=== PATIENT | male | born 1990 | race Caucasian/White ===

== ENCOUNTER 2020-05-06 14:15 | Outpatient (REF) | payer OTHER, SELFPAY | END 2020-05-06 14:16 | disposition home or self-care (01) | LOC: HO.LAB 14:15 | PROVIDERS: Visit Provider Internal Medicine | DX: Z20.828 Contact with and (suspected) exposure to other viral communicable diseases (principal) | CPT/HCPCS: C9803; U0003 ==

== ENCOUNTER 2020-07-01 15:17 | Outpatient (REF) | payer OTHER, SELFPAY ==
[2020-07-01 15:46] LABS: Eosinophils Absolute Auto 0.4 X10*3/uL (0.0-0.4); Imm Gran Pct Auto 0.4 % (0.0-0.4); MANUAL DIFF FLAG SCAN; Red Cell Distribution Width 12.3 % (11.0-16.0); SCAN SMEAR FLAG 1
[2020-07-01 15:48] LABS: Basophils Absolute Auto 0.1 X10*3/uL (0.0-0.2); Basophils Percent Auto 0.5 % (0-2); Hemoglobin 16.6 g/dl (14.0-18.0); Imm Gran Abs Auto 0.05 X10*3/uL (0.00-0.03); Lymphocytes Absolute Auto 2.7 X10*3/uL (1.2-4.9); Lymphocytes Percent Auto 19.1 % (20-40); Mean Corpuscular HGB Conc 34.6 g/dl (31.0-36.0); Mean Corpuscular Hemoglobin 30.5 pg (27.0-33.0); Mean Corpuscular Volume 88.1 fL (80-98); Monocytes Absolute Auto 1.4 X10*3/uL (0.1-1.2); Monocytes Percent Auto 9.9 % (2-11); Neutrophils Absolute Auto 9.4 X10*3/uL (2.0-8.3); Neutrophils Percent Auto 67.1 % (45-73); PLT CLUMP 1; Red Blood Count 5.45 X10*6/uL (4.60-5.80)
[2020-07-01 16:04] LABS: PLT ABN DIST 1
[2020-07-01 16:05] LABS: Platelet Count 134 X10*3/uL (160-400)
[2020-07-01 16:06] LABS: SLIDE REVIEW VERIFIED
[2020-07-01 16:27] LABS: Alanine Aminotransferase 18 U/L (0-40); Albumin Level 4.9 g/dL (3.5-5.0); Alkaline Phosphatase 119 U/L (39-117); Amylase 43 U/L (28-100); Aspartate Amino Transferase 19 U/L (5-37); Bilirubin Direct 0.3 mg/dL (0.0-0.5); Bilirubin Total 0.7 mg/dL (0.0-1.0); Lipase 53 U/L (8-78); Total Protein 7.9 g/dL (6.5-8.0)
== END 2020-07-01 15:18 | disposition home or self-care (01) ==
LOC: HO.LAB 15:17
PROVIDERS: PCP Internal Medicine; Visit Provider Internal Medicine
DX: R10.13 Epigastric pain (principal); K92.1 Melena
CPT/HCPCS: 36415; 80076; 82150; 83690; 85025

== ENCOUNTER 2020-07-03 19:50 | Emergency (ER) | payer OTHER, SELFPAY ==
--- NOTE | 2020-07-03 | ECG_ITS ---
Test Reason : REPAT Blood Pressure : / mmHG Vent. Rate : 088 BPM Atrial Rate : 088 BPM P-R Int : 140 ms QRS Dur : 082 ms QT Int : 362 ms P-R-T Axes : 067 040 038 degrees QTc Int : 438 ms Normal sinus rhythm Normal ECG When compared with ECG of 03-JUL-2020 19:57, Non-specific change in ST segment in Inferior leads Nonspecific T wave abnormality no longer evident in Inferior leads Referred By: Radha Panchal Electronically Signed By:MARISELA MANZANARES MD
--- NOTE | ~2020-07-03 | CT_ITS ---
EXAMINATION: CTA CHEST, ABDOMEN AND PELVIS WITH CONTRAST CLINICAL INFORMATION: Reason for Exam r/o dissection COMPARISON: No pertinent prior studies are available for comparison. TECHNIQUE: Multidetector volumetric imaging was performed from the thoracic inlet through the pubic symphysis following administration of 85 mL of Omnipaque 350. Sagittal and coronal reformatted images were obtained on the technologist's workstation. Images were not evaluated on an independent dedicated 3-D workstation and 3-D imaging was not obtained. This CT examination was performed using dose optimization techniques as appropriate, variously including the following: *Automated exposure control *Adjustment of mA and/or kV according to patient size (this includes techniques or standardized protocols for targeted exams where dose is matched to indication/reason for exam; i.e. extremities or head) *Use of iterative reconstruction technique DLP: 1126 mGy-cm VASCULAR FINDINGS: The thoracic aorta appears normal without evidence of aneurysm or dissection. Three-vessel branching pattern of the aortic arch is present and the great vessels are all widely patent. A tricuspid aortic valve is seen. Although not carried out for evaluation of the pulmonary arteries or pulmonary veins, no gross abnormality is seen. The abdominal demonstrates minimal calcific plaque distally without aneurysm. Minimal calcific plaque is present in the common iliac arteries and external iliac arteries and common femoral arteries without stenosis, aneurysm or dissection. The celiac SMA and KAYCE are all widely patent. There are single renal arteries present bilaterally which are widely patent. NONVASCULAR FINDINGS: CHEST: Lung: The lungs are clear without focal opacity or nodule. Mediastinum: The mediastinum is normal. The central vascular structures are unremarkable. No hilar or mediastinal lymphadenopathy. Pericardium/Pleura: No significant effusion. No pleural mass or thickening. Chest Wall/Axilla: Gynecomastia is present. ABDOMEN/PELVIS: Peritoneal Space: No significant free air or free fluid identified. Liver, Gallbladder, Biliary Tree: The liver is normal in size and shape but demonstrates decreased attenuation suggesting hepatic steatosis. No focal hepatic lesion or biliary ductal dilatation is present. The gallbladder is surgically absent Pancreas: Unremarkable Spleen: Unremarkable. A splenule is present. Adrenal Glands: Unremarkable Kidneys and Ureters: The kidneys are normal in size, shape, and attenuation. No hydronephrosis, hydroureter, or calculi seen. No perinephric stranding. Bladder: Unremarkable Gastrointestinal Tract: Patient status post gastric surgery with probable sleeve. The small and large bowel are unremarkable. The appendix is unremarkable. Abdominal Wall: No significant hernia is appreciated. Lymph Nodes: No lymphadenopathy. PELVIC VISCERA: Unremarkable. The vas deferens are calcified. Prostate appears normal. OSSEUS STRUCTURES: Minimal degenerative changes are noted in the spine. No bony destructive lesions are seen. CT/CT angio abdomen pelvis IMPRESSION: 1. No aortic dissection is seen. 2. Atherosclerotic changes are present with some mild calcific plaque, a bit unusual for a 30-year-old. The vas deferens are also calcified. I suspect this patient may be a diabetic. 3. Other incidental findings as described above.
[2020-07-03 20:08] VITALS: BP 128/96; PULSE 117; RESP 18; TEMP 36.9; O2SAT 98; BMI 27.8
--- NOTE | 2020-07-03 20:29 | PC.NURSE ---
chargemaster analyst call, pt clutching chest, pale, diaphoretic, sob. vitals being retaken. pt nausea. request at have pt brought back now.
[2020-07-03 20:30] VITALS: BP 77/50; PULSE 74; RESP 14
--- NOTE | 2020-07-03 20:38 | ECG_ITS ---
Test Reason : CHEST/MILLICENT PAIN Blood Pressure : / mmHG Vent. Rate : 115 BPM Atrial Rate : 115 BPM P-R Int : 146 ms QRS Dur : 082 ms QT Int : 328 ms P-R-T Axes : 079 069 012 degrees QTc Int : 453 ms Sinus tachycardia Right atrial enlargement Nonspecific T wave abnormality Abnormal ECG No previous ECGs available Referred By: Felipa Buchanan Electronically Signed By:MARISELA MANZANARES MD
[2020-07-03 20:43] LABS: Glucose, Whole Blood 331 mg/dL (60-115)
[2020-07-03 20:47] LABS: Hematocrit 49.1 % (42-52); Imm Gran Abs Auto 0.03 X10*3/uL (0.00-0.03); Imm Gran Pct Auto 0.2 % (0.0-0.4); Monocytes Percent Auto 10.1 % (2-11); SCAN SMEAR FLAG 1; WBC ABN SCTR 1
[2020-07-03] MEDS: 0.9 % Sodium Chloride 1,000 ML 999 ML IVCONT ×2 (20:47→21:48)
[2020-07-03 20:49] LABS: Basophils Absolute Auto 0.1 X10*3/uL (0.0-0.2); Basophils Percent Auto 0.8 % (0-2); Eosinophils Absolute Auto 0.5 X10*3/uL (0.0-0.4); Hemoglobin 17.2 g/dl (14.0-18.0); Lymphocytes Absolute Auto 3.3 X10*3/uL (1.2-4.9); Lymphocytes Percent Auto 24.8 % (20-40); Mean Corpuscular Hemoglobin 30.2 pg (27.0-33.0); Mean Corpuscular Volume 86.1 fL (80-98); Monocytes Absolute Auto 1.3 X10*3/uL (0.1-1.2); Neutrophils Absolute Auto 7.9 X10*3/uL (2.0-8.3); Neutrophils Percent Auto 60.1 % (45-73); Platelet Count 143 X10*3/uL (160-400); Red Cell Distribution Width 12.1 % (11.0-16.0)
[2020-07-03 20:52] LABS: PLT ABN DIST 1; WBC ABN SCTR FOR CBC 1
[2020-07-03 20:53] LABS: MANUAL DIFF FLAG NO; White Blood Count 13.1 X10*3/uL (4.8-10.8)
[2020-07-03] MEDS: iohexoL 350 MG/ML 100 ML INFUS..BTL IV (21:11)
[2020-07-03 21:17] LABS: INTERNATIONAL NORM RATIO 1.1 (0.9-1.1); Prothrombin Time 12.7 SEC (10.8-13.0)
[2020-07-03 21:21] LABS: Lactic Acid 2.5 mmol/L (0.5-2.0)
[2020-07-03 21:22] LABS: Alanine Aminotransferase 20 U/L (0-40); Alkaline Phosphatase 111 U/L (39-117); Anion Gap 20 (12-20); Aspartate Amino Transferase 18 U/L (5-37); Bilirubin Direct 0.3 mg/dL (0.0-0.5); Bilirubin Total 0.7 mg/dL (0.0-1.0); Blood Urea Nitrogen 14 mg/dL (9-16); Calcium 10.2 mg/dL (8.4-10.2); Carbon Dioxide 22 mmol/L (22-29); Chloride 99 mmol/L (96-108); Creatinine Clr Calc Pharmacy 88.7; Estimated Glomerular Filt Rate 59; Glucose Random 351 mg/dL (60-115); Magnesium 2.2 mg/dL (1.6-2.6); Potassium 3.9 mmol/L (3.3-5.1); Sodium 137 mmol/L (135-145)
[2020-07-03 21:23] LABS: Lipase 49 U/L (8-78)
[2020-07-03 21:24] LABS: COVID-19 Test Negative (Negative); IDNOW Serial# 9DD0AD1C
[2020-07-03 21:27] LABS: Troponin-I High Sensitivity < 3.5 ng/L (<3.5-35.0)
--- NOTE | 2020-07-03 21:28 | ED_ITS ---
HPI - Chest Pain General Chief Complaint: Chest Pain Stated Complaint: Chest and back pain Time Seen by Provider: 07/03/20 20:40 Source: patient Mode of arrival: ambulatory History of Present Illness HPI narrative: 30-year-old male with a past medical history of hypertension, anxiety, hyperlipidemia, presenting to the ED complaining of chest pain radiating to back and right leg with associated SOB x1 week. Reports recently discharge from [facility] this week with similar symptoms, and scheduled for endoscopy and colonoscopy tomorrow with our GI doctor. Admits has been taking colonoscopy prep, with multiple episodes of diarrhea today. Denies fever, chills, vomiting. Per [facility] records patient was recently admitted for mild colitis and electrolyte abnormalities with significant vomiting, palpitations, and anxiety. Was noted to be hypokalemic and in mild benzo withdrawal after running out of his clonazepam and then seen again in their ED on 06/29. MD complaint: chest pain Related Data Home Medications Medication Instructions Recorded Confirmed clonazepam 1 tab PO BID 07/03/20 07/03/20 lisinopril 1 tab PO DAILY 07/03/20 07/03/20 omeprazole 1 cap PO DAILY 07/03/20 07/03/20 ondansetron 1 tab PO Q8H PRN 07/03/20 07/03/20 simvastatin 1 tab PO BEDTIME 07/03/20 07/03/20 tizanidine mg PO 07/03/20 07/03/20 Allergies Allergy/AdvReac Type Severity Reaction Status Date / Time No Known Allergies Allergy Unverified 02/07/20 17:32 [No Known Allergies*] Review of Systems Review of Systems: Constitutional: +Weight loss, No Fever, No Chills, No Night Sweats, + Fatigue, No Malaise Cardiovascular: + Chest Pain, + SOB, No Dyspnea on Exertion Respiratory: No Cough, No Sputum Gastrointestinal: No Nausea, No Vomiting, + Diarrhea, No Constipation, + Abdominal pain, No Hematochezia, No Melena Genitourinary: No irregular bleeding, No Dysuria, No Urinary Frequency, No Hematuria Musculoskeletal: No joint pain, No Myalgias, No Joint Swelling Skin: No Skin Lesions, No rash Neuro: +generalized Weakness, No Numbness, No Paresthesias Yes all other systems are reviewed and are negative PMFSH Past Medical History Attestation statement: The following information was validated with the patient. Medical History (Updated 07/03/20 @ 22:07 by ILYA Bradford) Anxiety Diabetes Elevated cholesterol ETOH abuse HTN (hypertension) Surgical History (Updated 07/03/20 @ 11:16 by Krista Levin RN) History of sleeve gastrectomy Hx laparoscopic cholecystectomy Hx of esophagogastroduodenoscopy Social History Social History Alcohol intake: former Smoked in Last 30 Days: No Use of substances other than those prescribed or required for medical reasons: No Advance Directives: No Physical Exam Vital Signs: Vital Signs: Last Vital Signs Temp 98.5 F 07/03/20 20:08 Pulse 76 07/04/20 02:00 Resp 22 H 07/04/20 02:00 BP 156/70 H 07/04/20 00:00 Pulse Ox 97 07/04/20 02:00 Body Mass Index 27.8 Const: Other: Initially pale, diaphoretic General: cooperative and alert Limitations: no limitations HENMT: Head: Yes normal to inspection Ears: hearing grossly normal bilaterally General nose exam: Normal external nose present Face and sinus: Yes normal facial exam Eyes: General: appearance normal, both eyes and all related structures Pupils: Equal, round and reactive pupils present EOM: EOMs intact bilaterally Neck: Neck: Yes normal visual inspection and Yes no lymphadenopathy Resp: Effort & Inspection: normal respiratory effort Auscultation: clear to auscultation bilaterally, no rales, no rhonchi and no wheezes Cardio: Rate: regular rate Heart sounds: S1 normal heart sound present and S2 normal heart sound present GI: Inspection: Yes normal to inspection Palpation (GI): Soft to palpation, nontender, no guarding and not rigid Skin: Rashes: no rashes Wounds: no wounds Neuro: Cranial nerves: Yes Equal, round and reactive pupils present Extrem: General: Yes normal to inspection Course Course Course Narrative: -mild leukocytosis of 13, with lactic acidosis 2.5 likely from dehydration. Glucose 351, no anion gap, troponin negative, labs otherwise unremarkable CT angio chest IMPRESSION: 1. No aortic dissection is seen. 2. Atherosclerotic changes are present with some mild calcific plaque, a bit unusual for a 30-year-old. The vas deferens are also calcified. I suspect this patient may be a diabetic. 3. Other incidental findings as described above. -- On re-evaluation patient reports generalized weakness/fatigue, feels drained. -pt persistently tachycardic, d-dimer added, still low concern for severe sepsis. -d-dimer negative, UA and CEDEÑO still pending -216--lactic 0.9. Symptoms suspected from dehydration/diarrheal losses from prep. Patient comfortably sleeping now. Plan for discharge to attend colonoscopy tomorrow. ED care transferred to Dr. Mixon pending d/c MDM - Chest Pain MDM Narrative Medical decision making narrative: 30-year-old male with a past medical history of hypertension, anxiety, hyperlipidemia, presenting to the ED complaining of chest pain radiating to back and right leg with associated SOB x1 week. Admits has been taking colonoscopy prep, with multiple episodes of diarrhea today. On initial ED arrival patient was pale, diaphoretic, lethargic, abdomen soft/nontender, lungs CTA. Concern for dissection vs vasovagal episode, patient rushed to stat CT angio due to history. EKG without STEMI. Likely dehydration from colonoscopy prep. Low concern for severe sepsis Plan: EKG, labs, CT, IVF, re-evaluated Lab Data Result diagrams: 07/03/20 20:40 07/03/20 20:40 Labs: Lab Results 07/03/20 07/03/20 07/03/20 Range/Units 20:36 20:40 20:40 WBC 13.1 H (4.8-10.8) X10*3/uL RBC 5.70 (4.60-5.80) X10*6/uL Hgb 17.2 (14.0-18.0) g/dl Hct 49.1 (42-52) % MCV 86.1 (80-98) fL MCH 30.2 (27.0-33.0) pg MCHC 35.0 (31.0-36.0) g/dl RDW 12.1 (11.0-16.0) % Plt Count 143 L (160-400) X10*3/uL Immature Gran % (Auto) 0.2 (0.0-0.4) % Neut % (Auto) 60.1 (45-73) % Lymph % (Auto) 24.8 (20-40) % [place] % (Auto) 10.1 (2-11) % Eos % (Auto) 4.0 (0-4) % Baso % (Auto) 0.8 (0-2) % Lymph # (Auto) 3.3 (1.2-4.9) X10*3/uL [place] # (Auto) 1.3 H (0.1-1.2) X10*3/uL Eos # (Auto) 0.5 H (0.0-0.4) X10*3/uL Baso # (Auto) 0.1 (0.0-0.2) X10*3/uL Abs Immat Gran (auto) 0.03 (0.00-0.03) X10*3/uL Absolute Neuts (auto) 7.9 (2.0-8.3) X10*3/uL Absolute Nucleated RBC 0.000 (0.0-0.012) X10*3/uL Nucleated RBC % (auto) 0.0 (0.0-0.2) /100WBC PT 12.7 (10.8-13.0) SEC INR 1.1 (0.9-1.1) APTT 29.0 (24.1-38.0) SEC D-Dimer < 200 NG/ML Hold Blue Top SEE NOTE Sodium (135-145) mmol/L Potassium (3.3-5.1) mmol/L Chloride (96-108) mmol/L Carbon Dioxide (22-29) mmol/L Anion Gap (12-20) BUN (9-16) mg/dL Creatinine (0.5-1.4) mg/dL Estim Creat Clear Calc Estimated GFR POC Glucose 331 H (60-115) mg/dL Random Glucose (60-115) mg/dL Lactic Acid (0.5-2.0) mmol/L Lactic Acid Fup @ 2Hr (0.5-2.0) mmol/L Lactic Acid Fup @ 4Hr (0.5-2.0) mmol/L Calcium (8.4-10.2) mg/dL Magnesium (1.6-2.6) mg/dL Total Bilirubin (0.0-1.0) mg/dL Direct Bilirubin (0.0-0.5) mg/dL AST (5-37) U/L ALT (0-40) U/L Alkaline Phosphatase (39-117) U/L Troponin I High Sens (<3.5-35.0) ng/L Total Protein (6.5-8.0) g/dL Albumin (3.5-5.0) g/dL Lipase (8-78) U/L Ethyl Alcohol mg/dL Acetone, Qual (Negative) COVID-19 (ALEJANDRA) (Negative) COVID-19 Clin Com 07/03/20 07/03/20 07/03/20 Range/Units 20:40 20:40 20:40 WBC (4.8-10.8) X10*3/uL RBC (4.60-5.80) X10*6/uL Hgb (14.0-18.0) g/dl Hct (42-52) % MCV (80-98) fL MCH (27.0-33.0) pg MCHC (31.0-36.0) g/dl RDW (11.0-16.0) % Plt Count (160-400) X10*3/uL Immature Gran % (Auto) (0.0-0.4) % Neut % (Auto) (45-73) % Lymph % (Auto) (20-40) % [place] % (Auto) (2-11) % Eos % (Auto) (0-4) % Baso % (Auto) (0-2) % Lymph # (Auto) (1.2-4.9) X10*3/uL [place] # (Auto) (0.1-1.2) X10*3/uL Eos # (Auto) (0.0-0.4) X10*3/uL Baso # (Auto) (0.0-0.2) X10*3/uL Abs Immat Gran (auto) (0.00-0.03) X10*3/uL Absolute Neuts (auto) (2.0-8.3) X10*3/uL Absolute Nucleated RBC (0.0-0.012) X10*3/uL Nucleated RBC % (auto) (0.0-0.2) /100WBC PT (10.8-13.0) SEC INR (0.9-1.1) APTT (24.1-38.0) SEC D-Dimer NG/ML Hold Blue Top Sodium 137 (135-145) mmol/L Potassium 3.9 (3.3-5.1) mmol/L Chloride 99 (96-108) mmol/L Carbon Dioxide 22 (22-29) mmol/L Anion Gap 20 (12-20) BUN 14 (9-16) mg/dL Creatinine 1.39 (0.5-1.4) mg/dL Estim Creat Clear Calc 88.7 Estimated GFR 59 POC Glucose (60-115) mg/dL Random Glucose 351 H* (60-115) mg/dL Lactic Acid (0.5-2.0) mmol/L Lactic Acid Fup @ 2Hr (0.5-2.0) mmol/L Lactic Acid Fup @ 4Hr (0.5-2.0) mmol/L Calcium 10.2 (8.4-10.2) mg/dL Magnesium 2.2 (1.6-2.6) mg/dL Total Bilirubin 0.7 (0.0-1.0) mg/dL Direct Bilirubin 0.3 (0.0-0.5) mg/dL AST 18 (5-37) U/L ALT 20 (0-40) U/L Alkaline Phosphatase 111 (39-117) U/L Troponin I High Sens < 3.5 (<3.5-35.0) ng/L Total Protein 8.0 (6.5-8.0) g/dL Albumin 5.0 (3.5-5.0) g/dL Lipase 49 (8-78) U/L Ethyl Alcohol < 10 mg/dL Acetone, Qual Negative (Negative) COVID-19 (ALEJANDRA) (Negative) COVID-19 Clin Com 07/03/20 07/03/20 07/03/20 Range/Units 20:46 20:46 23:11 WBC (4.8-10.8) X10*3/uL RBC (4.60-5.80) X10*6/uL Hgb (14.0-18.0) g/dl Hct (42-52) % MCV (80-98) fL MCH (27.0-33.0) pg MCHC (31.0-36.0) g/dl RDW (11.0-16.0) % Plt Count (160-400) X10*3/uL Immature Gran % (Auto) (0.0-0.4) % Neut % (Auto) (45-73) % Lymph % (Auto) (20-40) % [place] % (Auto) (2-11) % Eos % (Auto) (0-4) % Baso % (Auto) (0-2) % Lymph # (Auto) (1.2-4.9) X10*3/uL [place] # (Auto) (0.1-1.2) X10*3/uL Eos # (Auto) (0.0-0.4) X10*3/uL Baso # (Auto) (0.0-0.2) X10*3/uL Abs Immat Gran (auto) (0.00-0.03) X10*3/uL Absolute Neuts (auto) (2.0-8.3) X10*3/uL Absolute Nucleated RBC (0.0-0.012) X10*3/uL Nucleated RBC % (auto) (0.0-0.2) /100WBC PT (10.8-13.0) SEC INR (0.9-1.1) APTT (24.1-38.0) SEC D-Dimer NG/ML Hold Blue Top Sodium (135-145) mmol/L Potassium (3.3-5.1) mmol/L Chloride (96-108) mmol/L Carbon Dioxide (22-29) mmol/L Anion Gap (12-20) BUN (9-16) mg/dL Creatinine (0.5-1.4) mg/dL Estim Creat Clear Calc Estimated GFR POC Glucose (60-115) mg/dL Random Glucose (60-115) mg/dL Lactic Acid 2.5 H* (0.5-2.0) mmol/L Lactic Acid Fup @ 2Hr 2.5 H* (0.5-2.0) mmol/L Lactic Acid Fup @ 4Hr (0.5-2.0) mmol/L Calcium (8.4-10.2) mg/dL Magnesium (1.6-2.6) mg/dL Total Bilirubin (0.0-1.0) mg/dL Direct Bilirubin (0.0-0.5) mg/dL AST (5-37) U/L ALT (0-40) U/L Alkaline Phosphatase (39-117) U/L Troponin I High Sens (<3.5-35.0) ng/L Total Protein (6.5-8.0) g/dL Albumin (3.5-5.0) g/dL Lipase (8-78) U/L Ethyl Alcohol mg/dL Acetone, Qual (Negative) COVID-19 (ALEJANDRA) Negative (Negative) COVID-19 Clin Com See Note 07/04/20 Range/Units 01:46 WBC (4.8-10.8) X10*3/uL RBC (4.60-5.80) X10*6/uL Hgb (14.0-18.0) g/dl Hct (42-52) % MCV (80-98) fL MCH (27.0-33.0) pg MCHC (31.0-36.0) g/dl RDW (11.0-16.0) % Plt Count (160-400) X10*3/uL Immature Gran % (Auto) (0.0-0.4) % Neut % (Auto) (45-73) % Lymph % (Auto) (20-40) % [place] % (Auto) (2-11) % Eos % (Auto) (0-4) % Baso % (Auto) (0-2) % Lymph # (Auto) (1.2-4.9) X10*3/uL [place] # (Auto) (0.1-1.2) X10*3/uL Eos # (Auto) (0.0-0.4) X10*3/uL Baso # (Auto) (0.0-0.2) X10*3/uL Abs Immat Gran (auto) (0.00-0.03) X10*3/uL Absolute Neuts (auto) (2.0-8.3) X10*3/uL Absolute Nucleated RBC (0.0-0.012) X10*3/uL Nucleated RBC % (auto) (0.0-0.2) /100WBC PT (10.8-13.0) SEC INR (0.9-1.1) APTT (24.1-38.0) SEC D-Dimer NG/ML Hold Blue Top Sodium (135-145) mmol/L Potassium (3.3-5.1) mmol/L Chloride (96-108) mmol/L Carbon Dioxide (22-29) mmol/L Anion Gap (12-20) BUN (9-16) mg/dL Creatinine (0.5-1.4) mg/dL Estim Creat Clear Calc Estimated GFR POC Glucose (60-115) mg/dL Random Glucose (60-115) mg/dL Lactic Acid (0.5-2.0) mmol/L Lactic Acid Fup @ 2Hr (0.5-2.0) mmol/L Lactic Acid Fup @ 4Hr 0.9 (0.5-2.0) mmol/L Calcium (8.4-10.2) mg/dL Magnesium (1.6-2.6) mg/dL Total Bilirubin (0.0-1.0) mg/dL Direct Bilirubin (0.0-0.5) mg/dL AST (5-37) U/L ALT (0-40) U/L Alkaline Phosphatase (39-117) U/L Troponin I High Sens (<3.5-35.0) ng/L Total Protein (6.5-8.0) g/dL Albumin (3.5-5.0) g/dL Lipase (8-78) U/L Ethyl Alcohol mg/dL Acetone, Qual (Negative) COVID-19 (ALEJANDRA) (Negative) COVID-19 Clin Com Discharge Plan Discharge Clinical Impression: Dehydration Patient Disposition: Home, Self-Care Instructions: Dehydration (ED) Additional Instructions: Your blood work was reassuring today in the ED. You need to follow-up for your appointment for colonoscopy in the morning It is crucial that your in taking plenty of fluids and follow-up with your proper doctors If her symptoms persist or worsen, if feeling care going to pass out, constant worsening chest pain, shortness of breath, abdominal pain, or unable to eat or drink return to the ED Prescriptions: No Action tizanidine 2 mg tablet PO RF: 0 clonazepam 0.5 mg tablet 1 tab PO BID RF: 0 omeprazole 40 mg capsule,delayed release(DR/EC) 1 cap PO DAILY RF: 0 simvastatin 20 mg tablet 1 tab PO BEDTIME RF: 0 lisinopril 10 mg tablet 1 tab PO DAILY RF: 0 ondansetron 4 mg tablet,disintegrating 1 tab PO Q8H PRN (Reason: nausea/vomiting) RF: 0 Referrals: Georges An [Physician] - 1 day
[2020-07-03 21:45] LABS: Ethanol < 10 mg/dL
[2020-07-03 22:14] LABS: Acetone, serum QL Negative (Negative)
[2020-07-03 22:51] LABS: Reflex Lactate? Lactic Acid Added
[2020-07-03 23:14] VITALS: BP 142/91; PULSE 80
[2020-07-03 23:15] VITALS: BP 143/98; PULSE 84
[2020-07-03 23:18] VITALS: BP 135/96; PULSE 116
[2020-07-03 23:44] LABS: ~Lactic Acid-LAB USE ONLY 2.5 mmol/L (0.5-2.0)
[2020-07-03 23:59] LABS: D Dimer < 200 NG/ML
[2020-07-04] VITALS: BP 156/70; PULSE 74; RESP 16; O2SAT 98
[2020-07-04] MEDS: 0.9 % Sodium Chloride 1,000 ML 999 ML IVCONT (00:56)
[2020-07-04] MEDS: LORazepam 2 MG/ML VIAL IVPUSH (01:12)
[2020-07-04] MEDS: 0.9 % Sodium Chloride 500 ML 999 ML IV (01:13)
[2020-07-04 01:24] LABS: Reflex Lactate? 2 Y
[2020-07-04 02:00] VITALS: PULSE 76; RESP 22; O2SAT 97
[2020-07-04 02:13] LABS: ~Lactic Acid-LAB USE ONLY 0.9 mmol/L (0.5-2.0)
[2020-07-04 04:00] VITALS: BP 126/86; PULSE 69; RESP 16; O2SAT 97
[2020-07-04 07:08] VITALS: BP 151/98; PULSE 91; RESP 13; TEMP 36.7; O2SAT 100
[2020-07-04 09:23] LABS: Amphetamine Screen Urine Not Detected (Not Detect); Barbiturates, Urine Not Detected (Not Detect); Benzodiazepines Screen Urine Not Detected (Not Detect); Cannabinoid Screen Urine POSITIVE (Not Detect); Cocaine Screen Urine Not Detected (Not Detect); Opiate Screen Urine Not Detected (Not Detect); Phencyclidine Screen Urine Not Detected (Not Detect)
== END 2020-07-04 08:55 | disposition home or self-care (01) ==
PROVIDERS: Physician Assistant; Emergency Provider Student in an Organized Health Care Education/Training Program
DX: R07.9 Chest pain, unspecified (principal); E86.0 Dehydration; M54.5 Low back pain; M79.604 Pain in right leg; R10.9 Unspecified abdominal pain; Z79.899 Other long term (current) drug therapy; Z87.891 Personal history of nicotine dependence
CPT/HCPCS: 36415; 71275; 74174; 80048; 80076; 80307; 80320; 82009; 82947; 83605; 83690; 83735; 84484; 85025; 85379; 85610; 85730; 87635; 93005; 96361; 96374; 96375; 99284; 99285; J2060; Q9967

== ENCOUNTER 2020-07-04 08:55 | Day surgery (SDC) | payer OTHER, SELFPAY ==
--- NOTE | 2020-07-03 09:02 | P.CONAN_ITS ---
Documented by User: Miriam Martinez 07/03/20 12:00 HPI - Anesthesia Eval Consult details Narrative: 30yo M for Upper Endoscopy and Colonoscopy [facility] Past Medical History Medical History Anxiety Diabetes Elevated cholesterol ETOH abuse HTN (hypertension) Surgical History Surgical History History of sleeve gastrectomy Hx laparoscopic cholecystectomy Hx of esophagogastroduodenoscopy Social History Social History Alcohol intake: former Smoking Status: Never smoker Second Hand Smoke Exposure: No Use of substances other than those prescribed or required for medical reasons: No Advance Directives: No Advance Directives Information Provided: Yes Meds Allergies Allergy/AdvReac Type Severity Reaction Status Date / Time No Known Allergies Allergy Verified 07/04/20 10:39 [No Known Allergies*] Home Medications Medication Instructions Recorded Confirmed Last Taken Type clonazepam 1 tab PO BID 07/03/20 07/03/20 Unknown History lisinopril 1 tab PO DAILY 07/03/20 07/03/20 Unknown History omeprazole 1 cap PO DAILY 07/03/20 07/03/20 Unknown History ondansetron 1 tab PO Q8H PRN 07/03/20 07/03/20 Unknown History simvastatin 1 tab PO BEDTIME 07/03/20 07/03/20 Unknown History tizanidine mg PO 07/03/20 07/03/20 Unknown History Exam Exam Date and Time: July 03, 2020901 Pertinent Lab Results Pertinent Lab Results: Laboratory Tests 07/01/20 15:23 WBC 14.0 H Hgb 16.6 Hct 48.0 Plt Count 134 L Assessment and Plan Assessment Anesthesia Assessment: Chart Reviewed Documented by User: Nasrin Clifford 07/04/20 11:12 [facility] Past Medical History Medical History Anxiety Diabetes Elevated cholesterol ETOH abuse HTN (hypertension) Surgical History Surgical History History of sleeve gastrectomy Hx laparoscopic cholecystectomy Hx of esophagogastroduodenoscopy Social History Social History Alcohol intake: former Smoking Status: Never smoker Second Hand Smoke Exposure: No Use of substances other than those prescribed or required for medical reasons: No Advance Directives: No Advance Directives Information Provided: Yes Meds Allergies Allergy/AdvReac Type Severity Reaction Status Date / Time No Known Allergies Allergy Verified 07/04/20 10:39 [No Known Allergies*] Home Medications Medication Instructions Recorded Confirmed Last Taken Type clonazepam 1 tab PO BID 07/03/20 07/03/20 Unknown History lisinopril 1 tab PO DAILY 07/03/20 07/03/20 Unknown History omeprazole 1 cap PO DAILY 07/03/20 07/03/20 Unknown History ondansetron 1 tab PO Q8H PRN 07/03/20 07/03/20 Unknown History simvastatin 1 tab PO BEDTIME 07/03/20 07/03/20 Unknown History tizanidine mg PO 07/03/20 07/03/20 Unknown History Exam Airway Mallampati Class: II TM Dist: >3cm Neck ROM: Full
[2020-07-04 10:45] VITALS: BP 148/91; PULSE 89; RESP 16; TEMP 36.5; O2SAT 99; BMI 27.8
[2020-07-04] MEDS: Lactated Ringers 1,000 ML 100 ML IVCONT (11:50)
[2020-07-04 12:48] VITALS: BP 111/61; PULSE 80; RESP 16; TEMP 36.1; O2SAT 98
--- NOTE | 2020-07-04 12:51 | PM.OP ---
Brief Operative Note Date of Service: 07/04/20 Pre-op diagnosis: Abdominal pain, abnormal CT of colon, change in bowel habits Post-op diagnosis: other (Gastritis, R/O celiac disease, Hiatal hernia, R/O microscopic colitis) Procedure: EGD with biopsies, Colonoscopy to cecum and TI with biopsies Surgeon: Georges An Anesthesia: MAC Estimated blood loss (mL): 4.0 Pathology: other (A. Descending duodenum B. Gastric antrum C. Ascending colon D. Descending colon) Condition: stable Disposition: PACU
[2020-07-04 13:03] VITALS: BP 110/67; PULSE 93; RESP 18; O2SAT 100
[2020-07-04 13:18] VITALS: BP 150/90; PULSE 86; RESP 18; TEMP 36.1; O2SAT 100
--- NOTE | 2020-07-04 13:21 | OP_ITS ---
SURGEON: Georges An MD PREOPERATIVE DIAGNOSIS: POSTOPERATIVE DIAGNOSIS: PROCEDURE PERFORMED: ESTIMATED BLOOD LOSS: COMPLICATIONS: ANESTHESIA: Monitored anesthesia care. ASSISTANTS: SPECIMENS: PREOPERATIVE DIAGNOSES: Abdominal pain, change in bowel habits, abnormal CAT scan of the colon, and family history of colon cancer. POSTOPERATIVE DIAGNOSES: Abdominal pain, change in bowel habits, abnormal CAT scan of the colon, and family history of colon cancer, rule out celiac disease, gastritis,small hiatal hernia, rule out microscopic colitis and small internal hemorrhoids. PROCEDURES PERFORMED: Esophagogastroduodenoscopy with biopsies, and colonoscopy to the cecum and terminal ileum with biopsies. Full consent was obtained from him for both procedures, including the risks of bleeding and perforation. DESCRIPTION OF PROCEDURE: The patient was placed in the left lateral decubitus position. The Olympus video gastroscope was passed in the posterior oropharynx and upper esophagus under direct vision. The scope was passed slowly into the distal esophagus. The gastroesophageal junction appeared normal at 38 cm. There was no sign of any esophagitis. There was a small hiatal hernia. The scope was entered into the stomach and advanced to the pylorus. The duodenum was cannulated to the descending portion. The duodenum including the bulb appeared normal without mass or ulceration. Biopsies were obtained from the second and third portions of the duodenum. The scope was withdrawn back to the stomach. The gastric antrum and body had changes consistent with some mild gastritis with some edema, erythema, and minimal friability. There were no erosions or ulcerations. Biopsies were obtained from the gastric antrum. The scope was retroflexed visualizing the proximal stomach carefully, which appeared normal, without any sign of mass or ulceration. The scope was straightened. Of note, there was some scarring visible consistent with his previous sleeve gastrectomy. The scope was withdrawn back into the esophagus. The esophageal mucosa appeared normal. The scope was withdrawn from the patient. He was turned around for the colonoscopy. The digital rectal exam revealed no abnormalities. The Olympus video pediatric colonoscope was entered into the rectum and advanced easily to the cecum. Once in the cecum, I did identify normal-appearing cecal pouch with appendiceal orifice and a normal-appearing ileocecal valve. The terminal ileum was cannulated and appeared normal. Scope was withdrawn back in the colon. The entire cecum and ileocecal valve appeared normal. The scope was slowly withdrawn assessing all mucosal surfaces carefully. Preparation was excellent. I did not visualize any sign of polyps, colitis, nor angiodysplasia. Random biopsies were obtained in the ascending and descending colon. In the rectum, scope was retroflexed visualizing small internal hemorrhoids, but no other pathology. The rectal mucosa appeared normal. The scope was straightened and withdrawn from the patient. He tolerated both procedures well and was returned to recovery area in stable condition. IMPRESSION: 1. Gastritis. 2. Rule out celiac disease. 3. Small hiatal hernia. 4. Rule out microscopic colitis. 5. Small internal hemorrhoids. PLAN: The results of the biopsies will be checked. He has been advised to continue his daily omeprazole that he just started a couple of days ago, to see if that can give him any further relief of his upper abdominal pain. I will give him a prescription to try dicyclomine on a p.r.n. basis for any abdominal cramping. He did have some recent laboratories that were all normal including CBC, pancreatic enzymes, and LFTs. I did advise him to be sure to avoid all aspirin, alcohol, and NSAIDs. He was advised to see me in 2 to 3 months for a followup visit. This has been discussed with his family. MD ALEKSANDAR Bright/ANDRE / [id number] MIKKI
== END 2020-07-04 13:50 | disposition home or self-care (01) ==
PROVIDERS: PCP Internal Medicine; Visit Provider Internal Medicine
PROC: (CPT 45380; principal; 2020-07-04 10:50)
DX: R19.4 Change in bowel habit (principal); R10.13 Epigastric pain; K29.70 Gastritis, unspecified, without bleeding; K29.80 Duodenitis without bleeding; K64.8 Other hemorrhoids; K44.9 Diaphragmatic hernia without obstruction or gangrene; R93.5 Abnormal findings on diagnostic imaging of other abdominal regions, including retroperitoneum; E11.9 Type 2 diabetes mellitus without complications; I10 Essential (primary) hypertension; Z80.0 Family history of malignant neoplasm of digestive organs
CPT/HCPCS: 45380; 43239; 88305; 88342; J2250

== ENCOUNTER → 2022-06-10 13:26 | Outpatient (BNVA) | payer OTHER, SELFPAY | PROVIDERS: Visit Provider Surgery Vascular Surgery | DX: Z13.89 Encounter for screening for other disorder (principal) ==

== ENCOUNTER 2022-07-01 08:18 | Outpatient (REF) | payer OTHER, SELFPAY ==
--- NOTE | ~2022-07-01 | US_ITS ---
EXAMINATION: US VENOUS ULTRASOUND WITH DOPPLER LOWER EXTREMITY, RIGHT CLINICAL INFORMATION: Varicose veins of the right lower extremity lesion COMPARISON: Ultrasound from 06/06/2018 TECHNIQUE: Ultrasound of the deep veins is performed from the hip to the calf with compression sonography and color and pulse Doppler assessment. Spectral analysis with color-flow imaging is performed. Evaluation was initially scheduled as a superficial venous insufficiency with reflux study however patient had 2 stop the exam because they were feeling sick. Examination will be rescheduled. Dictation is of the limited evaluation which was able to be performed FINDINGS: There is normal venous compression and respiratory variation and augmented flow. The visualized common femoral vein, superficial femoral vein, profunda femoral vein, popliteal vein, and the trifurcation region shows no evidence of deep venous thrombosis. There is no significant popliteal fossa cyst. Proximal small saphenous vein measures 0.2 cm without reflux. The distal small saphenous vein measures 0.2 cm without reflux. US/US venous duplex LE RT IMPRESSION: No DVT demonstrated in the right lower extremity. The superficial venous reflux portion of the study could not be performed because the patient was feeling sick and unable to complete the examination. Only the evaluation of the small saphenous vein was performed which appears normal in size without significant reflux
== END 2022-07-01 08:19 | disposition home or self-care (01) ==
LOC: HO.US 08:18
PROVIDERS: PCP Internal Medicine; Visit Provider Surgery Vascular Surgery
DX: I83.893 Varicose veins of bilateral lower extremities with other complications (principal)
CPT/HCPCS: 93971

== ENCOUNTER 2022-07-14 10:29 | Outpatient (REF) | payer OTHER, SELFPAY ==
--- NOTE | ~2022-07-14 | US_ITS ---
EXAMINATION: US LOWER EXTREMITY VENOUS (REFLUX EXAM), BILATERAL CLINICAL INDICATION: Bilateral lower extremity varicose veins with pain COMPARISON: None. TECHNIQUE: Color flow triplex imaging and compression Doppler was performed to evaluate both the deep and the superficial systems bilaterally. To evaluate the superficial system, the examination was performed in the upright position. Color-flow Doppler ultrasound and compression ultrasound were utilized. In addition, maneuvers were utilized to demonstrate reflux. FINDINGS: 1. DEEP VENOUS ULTRASOUND OF THE RIGHT LOWER EXTREMITY: Common Femoral Vein: Compressible, normal respiratory variation and augmented flow. Femoral Vein: Compressible, normal color flow and augmentation. Popliteal Vein: Compressible, normal augmentation. Deep Reflux: There is no significant reflux in the deep system in either the common femoral vein or the popliteal vein. There is no evidence of a Granger's cyst. 2. SUPERFICIAL ULTRASOUND WITH DOPPLER OF RIGHT LOWER EXTREMITY: GREAT SAPHENOUS VEIN: Saphenofemoral Junction: 0.7 cm; Reflux: 0 ms Proximal Thigh: 0.4 cm; Reflux: 0 ms Mid Thigh: 0.3 cm; Reflux: 0 ms Above Knee: 0.2 cm; Reflux: 0 ms At Knee: 0.6 cm; Reflux: 0 ms Below Knee: 0.4 cm; Reflux: 0 ms Mid Calf: 0.2 cm; Reflux: 728 ms Ankle: 0.3 cm; Reflux: 0 ms DUPLICATED MEDIAL GREAT SAPHENOUS VEIN: Diameter: None Imaged Reflux: NA DUPLICATED LATERAL GREAT SAPHENOUS VEIN: Diameter: 0.2 cm Reflux: None SMALL SAPHENOUS VEIN: Proximal: 0.3 cm; Reflux: 0 ms Distal: 0.2 cm; Reflux: 0 ms VEIN OF GIACOMINI: None Imaged. PERFORATORS: Location: 2 separate tunnel form placing supervisor veins seen in the distal thigh measuring Size: 0.2 to 0.3 cm Reflux: Ranging from 2296 ms to 2460 ms VARICOSITIES: Location: Proximal thigh and distal thigh arising from of the tunnel form placing supervisor veins Size: 0.3 to 0.4 cm Reflux: 2556 ms 3. DEEP VENOUS ULTRASOUND OF THE LEFT LOWER EXTREMITY: Common Femoral Vein: Compressible, normal respiratory variation and augmented flow. Femoral Vein: Compressible, normal color flow and augmentation. Popliteal Vein: Compressible, normal augmentation. Deep Reflux: There is no evidence of reflux in the deep system in either the common femoral vein or the popliteal vein. There is no evidence of a Granger's cyst. 4. SUPERFICIAL ULTRASOUND WITH DOPPLER OF LEFT LOWER EXTREMITY: GREAT SAPHENOUS VEIN: Saphenofemoral Junction: 0.7 cm; Reflux: 0 ms Proximal Thigh: 0.5 cm; Reflux: 0 ms Mid Thigh: 0.3 cm; Reflux: 1408 ms Above Knee: 0.3 cm; Reflux: 0 ms At Knee: 0.3 cm; Reflux: 0 ms Below Knee: 0.3 cm; Reflux: 0 ms Mid Calf: 0.2 cm; Reflux: 0 ms Ankle: 0.2 cm; Reflux: 0 ms DUPLICATED MEDIAL GREAT SAPHENOUS VEIN: Diameter: None Imaged Reflux: NA DUPLICATED LATERAL GREAT SAPHENOUS VEIN: Diameter: None Imaged Reflux: NA SMALL SAPHENOUS VEIN: Proximal: 0.2 cm; Reflux: 0 ms Distal: 0.2 cm; Reflux: 0 ms VEIN OF GIACOMINI: None Imaged. PERFORATORS: Location: None significant Size: NA Reflux: NA VARICOSITIES: Location: None Imaged Size: NA Reflux: NA US/US venous duplex LE BI IMPRESSION: Right: Incompetent tunnel form placing supervisor veins with reflux in the thigh feeding into the varicose veins as described above. There is a focal area of reflux within the right great saphenous vein in the mid calf Left: Focal area of reflux in the left great saphenous vein in the mid thigh. Great saphenous vein otherwise appears unremarkable
== END 2022-07-14 10:30 | disposition home or self-care (01) ==
LOC: HO.US 10:29
PROVIDERS: Visit Provider Surgery Vascular Surgery
DX: I83.893 Varicose veins of bilateral lower extremities with other complications (principal)
CPT/HCPCS: 93970

== ENCOUNTER → 2022-07-20 11:01 | Outpatient (BNVA) | payer OTHER, SELFPAY | PROVIDERS: PCP Internal Medicine; Visit Provider Surgery Vascular Surgery | DX: Z13.89 Encounter for screening for other disorder (principal) ==

== ENCOUNTER → 2022-09-10 07:37 | Outpatient (BNVA) | payer OTHER, SELFPAY | PROVIDERS: PCP Internal Medicine; Visit Provider Surgery Vascular Surgery | DX: I83.11 Varicose veins of right lower extremity with inflammation (principal) | CPT/HCPCS: 37765 ==

== ENCOUNTER → 2022-09-23 09:13 | Outpatient (BNVA) | payer OTHER, SELFPAY | PROVIDERS: PCP Internal Medicine; Visit Provider Surgery Vascular Surgery ==

== ENCOUNTER → 2023-03-29 10:29 | Outpatient (BNVA) | payer OTHER, SELFPAY | PROVIDERS: PCP Internal Medicine; Visit Provider Physician Assistant Medical | DX: S90.02XA Contusion of left ankle, initial encounter (principal); W22.8XXA Striking against or struck by other objects, initial encounter | CPT/HCPCS: 99203 ==

== ENCOUNTER → 2023-04-01 11:30 | Outpatient (BNVA) | payer OTHER, SELFPAY | PROVIDERS: PCP Internal Medicine; Visit Provider Physician Assistant Medical | DX: S90.02XA Contusion of left ankle, initial encounter (principal); W22.8XXD Striking against or struck by other objects, subsequent encounter | CPT/HCPCS: 99213 ==

== ENCOUNTER → 2023-04-04 11:27 | Outpatient (BNVA) | payer OTHER, SELFPAY | PROVIDERS: PCP Internal Medicine; Visit Provider Physician Assistant Medical | DX: S90.02XA Contusion of left ankle, initial encounter (principal); W22.8XXA Striking against or struck by other objects, initial encounter | CPT/HCPCS: 99213 ==

== ENCOUNTER → 2023-04-13 09:29 | Outpatient (BNVA) | payer OTHER, SELFPAY | PROVIDERS: PCP Internal Medicine; Visit Provider Physician Assistant | DX: S97.82XA Crushing injury of left foot, initial encounter (principal); W22.8XXA Striking against or struck by other objects, initial encounter | CPT/HCPCS: 99213 ==

== ENCOUNTER → 2023-04-19 13:21 | Outpatient (BNVA) | payer OTHER, SELFPAY | PROVIDERS: PCP Internal Medicine; Visit Provider Physician Assistant | DX: S90.02XA Contusion of left ankle, initial encounter (principal); W22.8XXA Striking against or struck by other objects, initial encounter | CPT/HCPCS: 99213 ==

== ENCOUNTER 2023-04-19 14:00 | Outpatient (RCR) | payer OTHER, SELFPAY ==
--- NOTE | 2023-04-12 13:57 | MHC.PT.EP ---
[facility] [place] [facility] [place] [facility] [place] [facility] [address] Josiane Mackenzie [address] [phone] F: [phone] F: [phone] F: [phone] F: [phone] Physical Therapy Plan of Care Date of Evaluation: 04/12/23 Date of Surgery: Diagnosis: Left lower leg, ankle contusion/abrasion PT eval and treat, signed by An Marlow PA-C of [facility] date of consult 04/04/23 1-3x/week x 3-12 weeks Assessment: Pt is a RHD 33 y/o male, referred to PT for treatment of Left lower leg, ankle contusion/abrasion PT eval and treat, signed by An Marlow PA-C of [facility] date of consult 04/04/23 1-3x/week x 3-12 weeks following work related injury on 03/24/23 when patient had a large roll of commercial paper (approx 500lbs per pt) fall onto his steel toe sneaker when he was using a chisel to cut it loose from a large roll. Pt expressing PMH significant for past history of bariatric surgery (resulting in 100lbs weight loss), history of DM, reports has been out of his Januvia prescription from his PCP for the past month and a half states his sugars has been in the 240s lately but was well controlled prior to running out of [employer], (was formerly on metformin and insulin but no longer on either since significant weight loss). Does express change to his blood sugars as a result of this and was advised to call his PCP office regarding concern for lack of this refill. Pt sustained L medial ankle abrasions and trauma/impact to his foot when this paper roll fell onto him. He exhibits antalgic gait, impaired AROM of the L ankle, decreased ambulation tolerance, tightness of his HS/calf/hip ER L>R. Pt noted to exhibit poor tolerance for PROM R>L hip, increased hip ER bilaterally (hip ROM unrelated to work this specific work injury but relevant to how his baseline mobility and function gait is). He present with too many toes sign, increased hip ER, and decreased tolerance for active and passive hip flexion. He presents with healing small skin abrasions as a result of the injury and has tenderness over medial malleolus, anterior tibialist, and posterior tibialis tendons. Pt was educated to speak to his PCP and may benefit from screening to rule out pathology such as OA or necrosis of his hip as he has poor IR and hip flexion mobility, increased hip ER right lower extremity greater than left, (+) groin pain, and (+) buttocks pain. He admits to being unable to flex at the waist due to these sx. Pt does express improving tolerance for movement and ambulation of his left foot since time of initial work injury. Post initial evaluation he was initiated in gentle seated HS stretch, seated gastroc stretch, AP/toe crunches/splaying and AROM which he stated felt good and did not cause him further pain. He was encouraged to ice and elevate his L ankle to tolerance. Pt is scheduled to see the [facility] tomorrow for a follow-up. He was encouraged to make more appts in the [place] office but states he may elect to transfer to the [facility] site depending on the outcome of the [facility] appt/RTW status/work site/ease of appts to continue with moving ahead which will be addressed tomorrow. Pt pleasant and motivated for participation in therapy anticipating 2x/week x 2 weeks, then likely transitioning down to 1-2x/week x 2 additional weeks. Frequency and Duration: The patient will be seen 2x/week x 2 weeks, then likely taper to 1x/week x 2 weeks Short Term Goals: 1. Demonstrate L ankle AROM DF to neutral. 2. Increase strength L PF/IV to 5/5 L ankle. 3. RTW part/modified duty with good joint protection. 4. Improve HS flexibilty by 25% L LE. 5. Improve gastoc soleus flexibility by 25% L LE. [employer] Goals: 1. I HEP with good safety and joint protection measures. 2. RTW full duty with good body mechanics awareness. 3. SLS L LE to 20 seconds. 4. Rise from kneeling L>R and R>L MOD I L ankle. Treatment Plan: Modalities to reduce pain, spasms and effusion. Manual therapy to restore motion and function. Therapeutic exercise to improve strength and flexibility. Neuromuscular re-education for posture and balance. Therapeutic activities to return to functional activities of daily living. Electronically signed by: Leah Duarte PT, DPT Please sign and return to therapist. Thank you for your referral.
== END 2023-05-10 10:29 | disposition home or self-care (01) ==
LOC: HO.PTWFD 14:00
PROVIDERS: PCP Internal Medicine; Visit Provider Physician Assistant Medical
DX: S90.02XD Contusion of left ankle, subsequent encounter (principal)
CPT/HCPCS: 97110; 97140; 97161; 97535

== ENCOUNTER → 2023-04-22 11:29 | Outpatient (BNVA) | payer OTHER, SELFPAY | PROVIDERS: PCP Internal Medicine; Visit Provider Physician Assistant | DX: S90.02XD Contusion of left ankle, subsequent encounter (principal); W22.8XXD Striking against or struck by other objects, subsequent encounter | CPT/HCPCS: 99213 ==